=== PATIENT | female | born 1985 | race Caucasian/White ===

== ENCOUNTER 2019-11-03 06:33 | Emergency (ER) | payer MEDICAID, OTHER ==
[2019-11-03 06:56] VITALS: BP 130/70; PULSE 68
[2019-11-03] MEDS ORDERED: HYDROmorphone 1 MG/ML Syringe IM ONE (07:14)
--- NOTE | 2019-11-03 07:19 | EDM.PDOC ---
ED HPI GENERAL MEDICAL PROBLEM - General Chief Complaint: Flank Pain Stated Complaint: right side pain nausa Time Seen by Provider: 11/03/19 07:15 Source of Information: Reports: Patient History Limitations: Reports: No Limitations - History of Present Illness INITIAL COMMENTS - FREE TEXT/NARRATIVE: 34-year-old female woke up with right flank pain at 3:30 AM. Had several hot and cold flashes and nausea with a few vomiting episodes, then realized she needed to come to the emergency room because the pain was so intense. Some waxing and waning quality but does not go away. Very localized to the right flank area, some radiation around into the right lower quadrant. No fevers or chills. At the end of urination, she has dysuria, it is impossible that she is according to the patient. Onset: Unknown/Unsure (Woke with pain at 3:30 AM) Location: Reports: Back (Right flank) Improves with: Reports: None Worsens with: Reports: None Associated Symptoms: Reports: Nausea/Vomiting. 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 (See Below) Other HEALTHCARE MARKETER History: hystectomy in nov Neurological History: Reports: Concussion Psychiatric History: Reports: Depression Endocrine/Metabolic History: Reports: Other (See Below) Other Endocrine/Metabolic History: 3 thyroid nodules diagnoised 11/02/2019 Hematologic History: Reports: Blood Transfusion(s), Other (See Below) Other Hematologic History: "bleed out" every time has had surgery and needed transfusions Dermatologic History: Reports: Psoriasis, Scleroderma - Infectious Disease History Infectious Disease History: Reports: Chicken Pox, Influenza - Past Surgical History HEENT Surgical History: Reports: Adenoidectomy, Tonsillectomy Female Surgical History: Reports: Section, D&C, Hysterectomy Social & Family History - Tobacco Use Smoking Status *Q: Never Smoker - Recreational Drug Use Recreational Drug Use: No ED ROS GENERAL - Review of Systems Review Of Systems: See Below Constitutional: Reports: Malaise. Denies: Fever, Chills HEENT: Reports: No Symptoms Respiratory: Denies: Shortness of Breath Cardiovascular: Denies: Chest Pain GI/Abdominal: Reports: Abdominal Pain (Right lower quadrant has some radiated pain from the right flank) : Reports: Flank Pain Skin: Reports: No Symptoms Neurological: Denies: Dizziness, Headache Psychiatric: Reports: No Symptoms ED EXAM, GENERAL - Physical Exam Exam: See Below Exam Limited By: No Limitations General Appearance: Alert, Anxious, Mild Distress (Looks fairly uncomfortable) Head: Atraumatic Respiratory/Chest: No Respiratory Distress Cardiovascular: Regular Rate, Rhythm GI/Abdominal: Soft, Non-Tender Back Exam: CVA Tenderness (R). No: CVA Tenderness (L) Neurological: Alert, Oriented Psychiatric: Anxious Skin Exam: Warm, Dry Course - Vital Signs Last Recorded V/S: Last Vital Signs Temp 96.4 F L 11/03/19 06:56 Pulse 68 11/03/19 06:56 Resp 20 11/03/19 06:56 BP 130/70 11/03/19 06:56 Pulse Ox 99 11/03/19 06:56 - Orders/Labs/Meds Orders: Active Orders 24 hr Category Date Time Status CULTURE URINE [RM] Stat Lab 11/03/19 08:23 Received Labs: Laboratory Tests 11/03/19 Range/Units 07:01 Urine Color Yellow (YELLOW) Urine Appearance Turbid A (CLEAR) Urine pH 6.5 (5.0-8.0) Ur Specific [place] >= 1.030 (1.008-1.030) Urine Protein >=300 H (NEGATIVE) mg/dL Urine Glucose (UA) Negative (NEGATIVE) mg/dL Urine Ketones Trace H (NEGATIVE) mg/dL Urine Occult Blood Large H (NEGATIVE) Urine Nitrite Positive H (NEGATIVE) Urine Bilirubin Negative (NEGATIVE) Urine Urobilinogen 0.2 (0.2-1.0) EU/dL Ur Leukocyte Esterase Large H (NEGATIVE) Urine RBC Packed H (0-5) Urine WBC Packed H (0-5) Ur Epithelial Cells Few Amorphous Sediment Not seen Urine Bacteria Many Urine Mucus Not seen Meds: Medications Discontinued Medications Generic Name Dose Route Start Last Admin Trade Name Holley PRN Reason Stop Dose Admin Hydromorphone HCl 1 mg 11/03/19 07:14 11/03/19 07:20 Dilaudid IM 11/03/19 07:15 1 mg ONETIME ONE Administration Ceftriaxone Sodium 1 gm/ 50 mls @ 100 mls/hr 11/03/19 08:05 11/03/19 08:30 Sodium Chloride IV 11/03/19 08:34 100 mls/hr ONETIME ONE Administration - Re-Assessments/Exams Free Text/Narrative Re-Assessment/Exam: 11/03/19 07:19 A UA was obtained that looks cloudy. Patient is fairly uncomfortable so was given 1 mg of IM Dilaudid, and a CT abdomen and pelvis without contrast will be ordered. 11/03/19 08:12 IMPRESSION: Inflammatory stranding surrounding the right ureter. However, there is no visible calculus within either kidney, the course of the ureter or within the bladder. Differential considerations are obstructive uropathy due to a noncalcified calculus, recent passage of a stone, ureteral/bladder stricture or mass. An inflammatory process/UTI or neoplastic process unrelated to obstructive uropathy is also possible. Further clinical correlation advised. UA is markedly positive, nitrite positive packed with bacteria WBCs and RBCs. An IV was started and she will be given 1 g of Rocephin IV and then started on oral antibiotics. A culture of the urine was started. 11/03/19 09:36 Patient tolerated the Rocephin well, cefuroxime 250 mg twice daily was called in for 10 days. Departure - Departure Time of Disposition: 09:04 Disposition: Home, Self-Care 01 Clinical Impression: UTI, Urinary tract infectious disease - Discharge Information Prescriptions: Cefuroxime [Ceftin] 250 mg PO BID 10 Days #20 tab Instructions: Urinary Tract Infection, Adult Referrals: PCP,None [Primary Care Provider] - Forms: ED Department Discharge Care Plan Goals: Take antibiotic twice daily until gone, rest and fluids are important the first 24 to 48 hours. Return anytime if worsening such as vomiting the medication, increased pain or fever. Ibuprofen or naproxen will be helpful for pain. Consider rechecking in 2 to 3 days if not improving satisfactorily. We will be in touch with you with culture result if changes are needed. In 2 to 3 weeks you should recheck your urine when asymptomatic to make sure everything has cleared. Sepsis Event Note - Evaluation Sepsis Screening Result: No Definite Risk - Focused Exam Vital Signs: Vital Signs Temp Pulse Resp BP Pulse Ox 11/03/19 06:56 96.4 F L 68 20 130/70 99 11/03/19 06:53 96.4 F L 68 20 130/70 99 Date Exam was Performed: 11/03/19 Time Exam was Performed: 09:36 - My Orders Last 24 Hours: My Active Orders 11/03/19 08:23 CULTURE URINE [RM] Stat - Assessment/Plan Last 24 Hours: My Active Orders 11/03/19 08:23 CULTURE URINE [RM] Stat
--- NOTE | 2019-11-03 08:00 | CRLCT ---
INDICATION: Right flank pain COMPARISON: None TECHNIQUE: CT examination of the abdomen and pelvis was performed without intravenous contrast. Thin section axial images were obtained from the lung bases through the pubic symphysis. Oral contrast was not administered. Please note that all CT scans at this facility use dose modulation, iterative reconstruction, and/or weight-based dosing when appropriate to reduce radiation dose to as low as reasonably achievable. FINDINGS: LUNG BASES: The lung bases as visualized appear normal.The heart size is normal at the lung bases. LIVER/BILIARY SYSTEM:The liver is normal in size and configuration given the lack of intravenous contrast. There is no visible focal mass and there is no intra- or extra hepatic biliary ductal dilatation.The gall bladder appears normal. ADRENALS: Normal non-contrast appearance KIDNEYS, URETERS and BLADDER:There is no intrarenal calculus on either side. There is stranding surrounding the right ureter with periureteric inflammatory change. However, there is no visible calculus within the course of the ureter or within the bladder. Differential considerations are obstructive uropathy due to a noncalcified calculus, recent passage of a stone or ureteral/bladder stricture or mass. An inflammatory or neoplastic process unrelated to obstructive uropathy is also possible further evaluation is advised SPLEEN:Normal non-contrast appearance. PANCREAS: Normal non-contrast appearance. RETROPERITONEUM and MESENTERY: There is no mass, adenopathy or aortic aneurysm. GASTROINTESTINAL SYSTEM: There is no evidence of diverticulitis, colitis, mechanical obstruction, or appendicitis. The small bowel as visualized appears normal. PELVIS: No mass, adenopathy or free fluid. OSSEOUS STRUCTURES and ABDOMINAL WALL: There is an age-appropriate appearance of the osseous structures.No significant abdominal wall defect. OTHER: No free fluid or free air. IMPRESSION: Inflammatory stranding surrounding the right ureter. However, there is no visible calculus within either kidney, the course of the ureter or within the bladder. Differential considerations are obstructive uropathy due to a noncalcified calculus, recent passage of a stone, ureteral/bladder stricture or mass. An inflammatory process/UTI or neoplastic process unrelated to obstructive uropathy is also possible. Further clinical correlation advised. Please note that all CT scans at this facility use dose modulation, iterative reconstruction, and/or weight-based dosing when appropriate to reduce radiation dose to as low as reasonably achievable. Dictated by Reji Nicole MD @ Nov 03 2019 7:51AM Signed by Dr. Reji Nicole @ Nov 03 2019 7:59AM
[2019-11-03] MEDS ORDERED: cefTRIAXone 1 GM in Sodium Chloride 0.9% 50 ML IV ONE (08:05)
== END 2019-11-03 09:05 | disposition home or self-care (01) ==
LOC: JP.ED 06:33
DX: N39.0 Urinary tract infection, site not specified (principal)
CPT/HCPCS: 74176; 81001; 87086; 87088; 87186; 96365; 96372; 99284; J0696; J1170; J7050

== ENCOUNTER 2020-02-12 17:04 | Emergency (ER) | payer MEDICAID, OTHER ==
[2020-02-12 17:18] VITALS: BP 144/91; PULSE 68
[2020-02-12] MEDS ORDERED: Tetracaine HCl/PF 0.5% 4 ML Bottle EYERT ONE (17:39)
--- NOTE | 2020-02-12 17:46 | EDM.PDOC ---
ED HPI GENERAL MEDICAL PROBLEM - General Chief Complaint: ENT Problem Stated Complaint: RT EYE INJURY Time Seen by Provider: 02/12/20 17:30 Source of Information: Reports: Patient, RN, RN Notes Reviewed History Limitations: Reports: No Limitations - History of Present Illness INITIAL COMMENTS - FREE TEXT/NARRATIVE: Patient was working outside today. She was struck in the right eye by a stick. She does not feel anything in the eye however she has a blurry spot in her vision and significant pain. Patient came straight to the ER. She tried nothing prior to coming here. Onset: Today, Sudden Onset Date: 02/12/20 Onset Time: 16:00 Duration: Minutes: Location: Reports: Face (Right eye) Quality: Reports: Burning Improves with: Reports: None Worsens with: Reports: None Context: Reports: Trauma Associated Symptoms: Reports: No Other Symptoms Right Eye Pain Score (Numeric/FACES): 5 - Related Data Allergies Allergy/AdvReac Type Severity Reaction Status Date / Time No Known Allergies Allergy Verified 02/12/20 17:21 Home Meds: Home Meds Cholecalciferol (Vitamin D3) [Vitamin D] 5,000 unit PO DAILY 02/12/20 [History] Escitalopram Oxalate 10 mg PO DAILY 02/12/20 [History] [place]-3/DHA/Epa/Fish Oil [Fish Oil 1,000 mg Softgel] 1 tab PO DAILY 02/12/20 [History] Vitamin B Complex 2 tab PO DAILY 02/12/20 [History] buPROPion HCL [Bupropion Xl] 150 mg PO DAILY 02/12/20 [History] Past Medical History HEENT History: Reports: None Respiratory History: Reports: Asthma Other Respiratory History: pain under R ribs hurt more with inspiration Genitourinary History: Reports: UTI, Recurrent GUIDE CRUISE History: Reports: Other (See Below) Other GUIDE CRUISE History: hystectomy in nov Musculoskeletal History: Reports: Back Pain, Chronic, Osteoarthritis Neurological History: Reports: Concussion Psychiatric History: Reports: Depression Endocrine/Metabolic History: Reports: Other (See Below) Other Endocrine/Metabolic History: 3 thyroid nodules diagnoised 11/02/2019. hashimatos Hematologic History: Reports: Blood Transfusion(s), Other (See Below) Other Hematologic History: "bleed out" every time has had surgery and needed transfusions Dermatologic History: Reports: Psoriasis, Scleroderma - Infectious Disease History Infectious Disease History: Reports: Chicken Pox, Influenza - Past Surgical History HEENT Surgical History: Reports: Adenoidectomy, Tonsillectomy Respiratory Surgical History: Reports: None Female Surgical History: Reports: Section, D&C, Hysterectomy Endocrine Surgical History: Reports: None Neurological Surgical History: Reports: None Musculoskeletal Surgical History: Reports: None Dermatological Surgical History: Reports: None Social & Family History - Tobacco Use Smoking Status *Q: Never Smoker - Caffeine Use Caffeine Use: Reports: Coffee - Recreational Drug Use Recreational Drug Use: No ED ROS ENT - Review of Systems Review Of Systems: See Below Constitutional: Reports: No Symptoms HEENT: Reports: Eye Pain (Right eye trouble) Respiratory: Reports: No Symptoms Cardiovascular: Reports: No Symptoms ED EXAM, ENT - Physical Exam Exam: See Below Exam Limited By: No Limitations General Appearance: Alert, WD/WN, Mild Distress Eye Exam: Right Eye: Corneal Abrasion (@ 1-2oclock across iris and sclera ), Vision Changes (blurry in area of abrasion - vision check complete), Bilateral Eye: EOMI, PERRL Neurological: Alert, Oriented, CN II-XII Intact, Normal Cognition, Normal Gait Psychiatric: Normal Affect, Normal Mood Course - Vital Signs Last Recorded V/S: Last Vital Signs Temp 36.0 C L 02/12/20 17:21 Pulse 68 02/12/20 17:21 Resp 16 02/12/20 17:21 BP 144/91 H 02/12/20 17:21 Pulse Ox 96 02/12/20 17:21 - Orders/Labs/Meds Meds: Medications Discontinued Medications Generic Name Dose Route Start Last Admin Trade Name Holley PRN Reason Stop Dose Admin Tetracaine HCl 2 ml 02/12/20 17:39 02/12/20 17:44 Tetracaine 0.5% Steri-Unit Altagracia EYERT 02/12/20 17:40 2 drop ASDIRECTED ONE Administration - Re-Assessments/Exams Free Text/Narrative Re-Assessment/Exam: 02/12/20 18:00 Tetracaine drops applied to eye. Flouracine staining with blue light illumination shows corneal abrasion @1-2 oclock across iris and sclera of the eye without foreign body identified. Pt tolerated the procedure well. 02/12/20 18:11 Tobradex eye drop RX via [facility] to prevent infection Utilize Ibuprofen, sunglasses and red eye drops to sooth eye and decrease pain Pt in agreement with this plan. If vision continues blurry followup with Eye provider. 02/12/20 18:13 Departure - Departure Time of Disposition: 18:23 Disposition: Home, Self-Care 01 Condition: Fair Clinical Impression: Corneal abrasion - Discharge Information *PRESCRIPTION DRUG MONITORING PROGRAM REVIEWED*: Not Applicable *COPY OF PRESCRIPTION DRUG MONITORING REPORT IN PATIENT LONI: Not Applicable Instructions: Corneal Abrasion, [id number] Referrals: PCP,None [Primary Care Provider] - Forms: ED Department Discharge Additional Instructions: Tobradex eye drop RX via [facility] to prevent infection Utilize Ibuprofen, sunglasses and red eye drops to sooth eye and decrease pain Pt in agreement with this plan. If vision continues blurry followup with Eye provider. Sepsis Event Note (ED) - Evaluation Sepsis Screening Result: No Definite Risk - Focused Exam Vital Signs: Vital Signs Temp Pulse Resp BP Pulse Ox 02/12/20 17:21 36.0 C L 68 16 144/91 H 96 02/12/20 17:16 36.0 C L 68 16 144/91 H 96
== END 2020-02-12 18:22 | disposition home or self-care (01) ==
LOC: JP.ED 17:04
DX: S05.01XA Injury of conjunctiva and corneal abrasion without foreign body, right eye, initial encounter (principal); J45.909 Unspecified asthma, uncomplicated; F32.9 Major depressive disorder, single episode, unspecified; Z90.710 Acquired absence of both cervix and uterus; Z90.49 Acquired absence of other specified parts of digestive tract; Z79.899 Other long term (current) drug therapy; W22.8XXA Striking against or struck by other objects, initial encounter
CPT/HCPCS: 99283

== ENCOUNTER 2020-07-11 20:14 | Emergency (ER) | payer MEDICAID ==
[2020-07-11 20:35] VITALS: BP 136/87; PULSE 66
--- NOTE | 2020-07-11 21:55 | EDM.PDOC ---
ED HPI GENERAL MEDICAL PROBLEM - General Chief Complaint: General Stated Complaint: FELL Time Seen by Provider: 07/11/20 20:56 Source of Information: Reports: Patient History Limitations: Reports: No Limitations - History of Present Illness INITIAL COMMENTS - FREE TEXT/NARRATIVE: The patient reports that several days ago she went ice fishing and she was carrying a bunch of equipment back into the house when she inadvertently tripped over her daughter's bike causing her to fall on her left knee and right elbow. She had acute onset of pain and bruising of the knee just below the patella. She has been icing and elevating it and taking ibuprofen for pain. This happened 3 days ago and it has not improved much prompting her to come in for evaluation. She has no problems walking on it, however, she reports significant tenderness over the tibial plateau and medial joint line. She is also complaining of right elbow pain and the inability to fully extend her right elbow since the fall. She has also been icing and resting this over the last 3 days. She denies any distal numbness or tingling, weakness, or other neurologic deficits. She did not sustain any other injuries. Left Knee Pain Score (Numeric/FACES): 5 Right Elbow Pain Score (Numeric/FACES): 6 - Related Data Allergies Allergy/AdvReac Type Severity Reaction Status Date / Time No Known Allergies Allergy Verified 07/11/20 20:47 Home Meds: Home Meds Cholecalciferol (Vitamin D3) [Vitamin D] 5,000 unit PO DAILY 02/12/20 [History] Escitalopram Oxalate 20 mg PO DAILY 02/12/20 [History] [place]-3/DHA/Epa/Fish Oil [Fish Oil 1,000 mg Softgel] 2 tab PO DAILY 02/12/20 [History] Vit D3 & K/[place] HCl/Hops [Ostera] 3 tab PO DAILY 07/11/20 [History] amLODIPine [Norvasc] 1 tab PO DAILY 07/11/20 [History] Past Medical History HEENT History: Reports: None Cardiovascular History: Reports: Hypertension Respiratory History: Reports: Asthma Other Respiratory History: pain under R ribs hurt more with inspiration Genitourinary History: Reports: UTI, Recurrent 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 hashimatos Hematologic History: Reports: Blood Transfusion(s), Other (See Below) Other Hematologic History: "bleed out" every time has had surgery and needed transfusions Dermatologic History: Reports: Psoriasis, Scleroderma - Infectious Disease History Infectious Disease History: Reports: Chicken Pox, Influenza - Past Surgical History HEENT Surgical History: Reports: Adenoidectomy, Tonsillectomy Respiratory Surgical History: Reports: None Female Surgical History: Reports: Section, D&C, Hysterectomy Endocrine Surgical History: Reports: None Neurological Surgical History: Reports: None Musculoskeletal Surgical History: Reports: None Dermatological Surgical History: Reports: None Social & Family History - Family History Family Medical History: No Pertinent Family History - Tobacco Use Tobacco Use Status *Q: Never Tobacco User - Caffeine Use Caffeine Use: Reports: Coffee - Recreational Drug Use Recreational Drug Use: No ED ROS GENERAL - Review of Systems Review Of Systems: See Below Constitutional: Reports: No Symptoms HEENT: Reports: No Symptoms Respiratory: Reports: No Symptoms Cardiovascular: Reports: No Symptoms Endocrine: Reports: No Symptoms GI/Abdominal: Reports: No Symptoms : Reports: No Symptoms Musculoskeletal: Reports: Joint Pain (Right elbow and left knee pain), Joint Swelling (Left knee swelling and ecchymosis) Skin: Reports: No Symptoms Neurological: Reports: No Symptoms Psychiatric: Reports: No Symptoms Hematologic/Lymphatic: Reports: No Symptoms Immunologic: Reports: No Symptoms ED EXAM, GENERAL - Physical Exam Exam: See Below Exam Limited By: No Limitations General Appearance: Alert, No Apparent Distress Head: Atraumatic, Normocephalic Neck: Normal Inspection, Supple Peripheral Pulses: 2+: Radial (L), Radial (R) Extremities: Joint Swelling (Swelling with ecchymosis over the proximal tibia. Tenderness to palpation over the medial joint line. No ligamentous laxity. No tenderness with palpation of the patella. Examination of the right elbow reveals mildly reduced range of motion from 170 - 90 degrees. There is good pronation supination. No significant swelling or ecchymosis. Tenderness with palpation over the lateral epicondyle.) Neurological: Alert, Oriented, Normal Cognition, No Motor/Sensory Deficits Psychiatric: Normal Affect, Normal Mood Skin Exam: Warm, Dry, Intact, Ecchymosis (Over the proximal anterior left tibia with significant swelling around the insertion of the patellar tendon.) Course - Vital Signs Last Recorded V/S: Last Vital Signs Temp 36.6 C 07/11/20 20:51 Pulse 66 07/11/20 20:51 Resp 16 07/11/20 20:51 BP 136/87 07/11/20 20:51 Pulse Ox 97 07/11/20 20:51 - Orders/Labs/Meds Orders: Active Orders 24 hr Category Date Time Status Elbow Min 3V Rt [CR] Stat Exams 07/11/20 21:01 Taken Knee 3V Lt [CR] Stat Exams 07/11/20 21:01 Taken - Radiology Interpretation Free Text/Narrative:: I reviewed x-rays of the left knee showing no acute osseous abnormalities. There is no evidence for tibial plateau fracture. There is a mild infrapatellar effusion. I reviewed the x-rays of the right elbow showing no acute osseous abnormalities. There is no evidence for a sail sign to suggest an occult supracondylar fracture. The radial head appears to be intact. There is no significant soft tissue swelling. It appears that the injuries have resulted in contusions of the elbow and knee. We discussed management of this including continuing with the ice and elevation as well as the ibuprofen or Tylenol. We will simply take time for this to fully resolve. Activity as tolerated. At this time patient suitable for discharge in satisfactory condition. All questions were answered prior to discharge. Departure - Departure Time of Disposition: 21:55 Disposition: Home, Self-Care 01 Condition: Good Clinical Impression: Contusion of right elbow, initial encounter, Contusion of left knee, initial encounter - Discharge Information *PRESCRIPTION DRUG MONITORING PROGRAM REVIEWED*: Not Applicable *COPY OF PRESCRIPTION DRUG MONITORING REPORT IN PATIENT LONI: Not Applicable Instructions: Elbow Contusion, [id number], Contusion, [id number] Referrals: Kwame Fernandez MD [Primary Care Provider] - Care Plan Goals: I would recommend continuing with ice, elevation of the knee, and activity as tolerated with both the knee and the elbow. Continue to take Tylenol or ibuprofen for pain control. It may take up to a week for this to show significant improvement. Sepsis Event Note (ED) - Evaluation Sepsis Screening Result: No Definite Risk - Focused Exam Vital Signs: Vital Signs Temp Pulse Resp BP Pulse Ox 02/03/21 20:51 36.6 C 66 16 136/87 97 07/11/20 20:33 36.6 C 66 16 136/87 97 - Problem List & Annotations (1) Contusion of left knee, initial encounter SNOMED Code(s): 55350866 Code(s): S80.02XA - CONTUSION OF LEFT KNEE, INITIAL ENCOUNTER Status: Acute Priority: Medium Current Visit: Yes (2) Contusion of right elbow, initial encounter SNOMED Code(s): 30484576 Code(s): S50.01XA - CONTUSION OF RIGHT ELBOW, INITIAL ENCOUNTER Status: Acute Priority: Medium Current Visit: Yes - Problem List Review Problem List Initiated/Reviewed/Updated: Yes - My Orders Last 24 Hours: My Active Orders 07/11/20 21:01 Elbow Min 3V Rt [CR] Stat Knee 3V Lt [CR] Stat - Assessment/Plan Last 24 Hours: My Active Orders 07/11/20 21:01 Elbow Min 3V Rt [CR] Stat Knee 3V Lt [CR] Stat
--- NOTE | 2020-07-12 09:09 | CR ---
Elbow Min 3V Rt, CLINICAL HISTORY: Fall FINDINGS: No acute fracture or dislocation is noted. The fat pads are in normal position. Articular surfaces are smooth Impression: Negative Knee 3V Lt CLINICAL HISTORY: Fall FINDINGS: No acute fracture or dislocation is noted. There are no osseous lesions. Articular surfaces are smooth Impression: Negative.
== END 2020-07-11 22:06 | disposition home or self-care (01) ==
LOC: JP.ED 20:14
DX: S80.02XA Contusion of left knee, initial encounter (principal); S50.01XA Contusion of right elbow, initial encounter; I10 Essential (primary) hypertension; J45.909 Unspecified asthma, uncomplicated; Z79.899 Other long term (current) drug therapy; W01.0XXA Fall on same level from slipping, tripping and stumbling without subsequent striking against object, initial encounter
CPT/HCPCS: 73080-26-RT; 73080-RT; 73562-26-LT; 73562-LT; 99283; 99284

== ENCOUNTER 2021-05-19 12:57 | Emergency (ER) | payer MEDICAID ==
[2021-05-19] MEDS ORDERED: Bacitracin Oint 1 GM U/D Packet TOP ONE (13:02)
[2021-05-19 13:04] VITALS: BP 147/69; PULSE 72
--- NOTE | 2021-05-19 13:35 | EDM.PDOC ---
ED HPI GENERAL MEDICAL PROBLEM - General Chief Complaint: Laceration Stated Complaint: STAB RT LEG Time Seen by Provider: 05/19/21 13:00 Source of Information: Reports: Patient History Limitations: Reports: No Limitations - History of Present Illness INITIAL COMMENTS - FREE TEXT/NARRATIVE: 36-year-old female was butchering a cow and stabbed herself on the inside of the left leg. She has a pressure dressing on it but is able to walk. She has not seen the laceration, she just assumes it is "bad". Her tetanus is current. Onset: Sudden Duration: Hour(s): (1 hour ago) Location: Reports: Lower Extremity, Left Quality: Reports: Stabbing Associated Symptoms: Reports: No Other Symptoms - Related Data Allergies Allergy/AdvReac Type Severity Reaction Status Date / Time No Known Allergies Allergy Verified 07/11/20 20:47 Home Meds: Home Meds Cholecalciferol (Vitamin D3) [Vitamin D] 5,000 unit PO DAILY 02/12/20 [History] Escitalopram Oxalate 20 mg PO DAILY 02/12/20 [History] Taylor-3/DHA/Epa/Fish Oil [Fish Oil 1,000 mg Softgel] 2 tab PO DAILY 02/12/20 [History] Vit D3 & K/Berberine HCl/Hops [Ostera] 3 tab PO DAILY 07/11/20 [History] Past Medical History HEENT History: Reports: None Cardiovascular History: Reports: Hypertension Respiratory History: Reports: Asthma Other Respiratory History: pain under R ribs hurt more with inspiration Genitourinary History: Reports: UTI, Recurrent [employer] History: Reports: Other [employer] History: hystectomy in nov Musculoskeletal History: Reports: Back Pain, Chronic, Osteoarthritis Neurological History: Reports: Concussion Psychiatric History: Reports: Depression Endocrine/Metabolic History: Reports: Other (See Below) Other Endocrine/Metabolic History: 3 thyroid nodules diagnoised 11/02/2019. [email or web address] Hematologic History: Reports: Blood Transfusion(s), Other (See Below) Other Hematologic History: "bleed out" every time has had surgery and needed transfusions Dermatologic History: Reports: Psoriasis, Scleroderma - Infectious Disease History Infectious Disease History: Reports: Chicken Pox, Influenza - Past Surgical History HEENT Surgical History: Reports: Adenoidectomy, Tonsillectomy Respiratory Surgical History: Reports: None Female Surgical History: Reports: Section, D&C, Hysterectomy Endocrine Surgical History: Reports: None Neurological Surgical History: Reports: None Musculoskeletal Surgical History: Reports: None Dermatological Surgical History: Reports: None Social & Family History - Family History Family Medical History: No Pertinent Family History - Tobacco Use Tobacco Use Status *Q: Never Tobacco User Second Hand Smoke Exposure: No - Caffeine Use Caffeine Use: Reports: Coffee - Alcohol Use Days Per Week of Alcohol Use: 4 Number of Drinks Per Day: 1 Total Drinks Per Week: 4 - Recreational Drug Use Recreational Drug Use: Yes Recreational Drug Type: Reports: Marijuana/Hashish ED ROS GENERAL - Review of Systems Review Of Systems: See Below Constitutional: Denies: Fever, Chills Respiratory: Reports: Shortness of Breath Cardiovascular: Reports: Chest Pain GI/Abdominal: Denies: Nausea, Vomiting Skin: Reports: Other (Laceration left leg) Neurological: Denies: Paresthesia (No distal paresthesias) ED EXAM, SKIN/RASH Exam: See Below Exam Limited By: No Limitations General Appearance: Alert, No Apparent Distress, Anxious Head: Atraumatic Respiratory/Chest: No Respiratory Distress, Lungs Clear Cardiovascular: Regular Rate, Rhythm Extremities: Other (Exam is otherwise limited to the left leg. After the pressure dressing was removed, a 2.5 cm laceration to the inner aspect of the left thigh was seen. Bleeding was controlled. No significant underlying structures were injured) Neurological: Alert, Oriented Skin: Other (3 cm laceration through the skin into the subcutaneous tissue on the left thigh) Course - Vital Signs Last Recorded V/S: Last Vital Signs Temp 98.6 F 05/19/21 13:02 Pulse 72 05/19/21 13:02 Resp 16 05/19/21 13:02 BP 147/69 H 05/19/21 13:02 Pulse Ox 95 05/19/21 13:02 - Orders/Labs/Meds Meds: Medications Discontinued Medications Generic Name Dose Route Start Last Admin Trade Name Karthikq PRN Reason Stop Dose Admin Bacitracin 1 dose 05/19/21 13:02 05/19/21 13:41 Bacitracin Oint 1 Gm U/D Packet TOP 05/19/21 13:03 1 dose ONETIME ONE Administration Lidocaine HCl 5 ml 05/19/21 13:02 05/19/21 13:41 Lidocaine 1% 5 Ml Sdv INJECT 05/19/21 13:03 5 ml ONETIME ONE Administration - Re-Assessments/Exams Free Text/Narrative Re-Assessment/Exam: 05/19/21 13:34 The area was anesthetized with 1% lidocaine and cleansed thoroughly with saline. Four 4-0 Ethilon sutures were used to close the wound. Topical bacitracin and a pressure dressing was applied, she can increase activity as tolerated and recheck in 10 days for suture removal. Recheck sooner if concerns for infection or not healing satisfactorily. Departure - Departure Time of Disposition: 13:42 Disposition: Home, Self-Care 01 Clinical Impression: Laceration of left leg Qualifiers: Encounter type: initial encounter Qualified Code(s): S81.812A - Laceration without foreign body, left lower leg, initial encounter - Discharge Information Instructions: Laceration Care, Adult Referrals: PCP,None [Primary Care Provider] - Forms: ED Department Discharge Care Plan Goals: Keep wound covered and clean while healing, sutures can be removed next Thursday the . Recheck sooner if concerns of infection or not healing satisfactorily. Continue activity as tolerated, and ibuprofen or naproxen may be helpful with discomfort. Sepsis Event Note (ED) - Evaluation Sepsis Screening Result: No Definite Risk - Focused Exam Vital Signs: Vital Signs Temp Pulse Resp BP Pulse Ox 05/19/21 13:02 98.6 F 72 16 147/69 H 95
== END 2021-05-19 13:42 | disposition home or self-care (01) ==
LOC: JP.ED 12:57
DX: S81.812A Laceration without foreign body, left lower leg, initial encounter (principal); I10 Essential (primary) hypertension; W55.22XA Struck by cow, initial encounter
CPT/HCPCS: 12001; 99282-25

== ENCOUNTER 2023-02-11 07:28 | Emergency (ER) | payer MEDICAID ==
[2023-02-11] MEDS ORDERED: Ondansetron 4 MG/2 ML SDV IVPUSH ONE ×2 (07:37→11:38)
[2023-02-11] MEDS ORDERED: HYDROmorphone 1 MG/ML Syringe IVPUSH ONE ×2 (07:37→08:17)
[2023-02-11 07:45] LABS: BASOPHILS ABSOLUTE AUTO 0.06 K/uL (0.00-0.10); BASOPHILS PERCENT AUTO 0.9 % (0.1-1.3); EOSINOPHILS PERCENT AUTO 1.5 % (0.0-5.4); HEMATOCRIT 38.6 % (34.3-46.0); HEMOGLOBIN 13.1 g/dL (11.2-15.5); IMMATURE GRAN PERCENT AUTO 0.1 % (0.0-0.7); LYMPHOCYTES ABSOLUTE AUTO 2.14 K/uL (0.8-3.3); LYMPHOCYTES PERCENT AUTO 32.1 % (11.4-47.7); MEAN CORPUSCULAR HGB CONC 33.9 g/dL (31.6-35.5); MEAN CORPUSCULAR VOLUME 91.5 fL (81.4-99.0); MONOCYTES ABSOLUTE AUTO 0.32 K/uL (0.20-0.90); MONOCYTES PERCENT AUTO 4.8 % (3.3-12.6); NEUTROPHILS ABSOLUTE AUTO 4.04 K/uL (1.0-7.6); NEUTROPHILS PERCENT AUTO 60.6 % (40.0-78.1); PLATELET COUNT,PLT 235 K/uL (130-375); RED BLOOD CELL COUNT 4.22 M/uL (3.77-5.24); WHITE BLOOD CELL COUNT,WBC 6.7 K/uL (3.2-11.0)
[2023-02-11] MEDS ORDERED: Sodium Chloride 0.9% 1,000 ML IV SCH (07:45)
[2023-02-11 07:46] LABS: IMMATURE GRAN ABSOLUTE AUTO 0.01 K/uL (0.00-0.23)
[2023-02-11 07:58] LABS: A/G RATIO 1.5 (1.2-2.2); ALANINE AMINOTRANSFERASE,ALT 24 U/L (12-78); ALBUMIN 4.2 g/dL (3.4-5.0); ALKALINE PHOSPHATASE 35 U/L (46-116); ASPARTATE AMNIOTRANSFERASE,AST 14 U/L (15-37); BILIRUBIN TOTAL 0.6 mg/dL (0.2-1.0); BLOOD UREA NITROGEN,BUN 16 mg/dL (7-18); C-REACTIVE PROTEIN <0.05 mg/dL (0.0-0.3); CALCIUM 8.8 mg/dL (8.5-10.1); CARBON DIOXIDE,CO2 25 mmol/L (21-32); CHLORIDE,CL 102 mmol/L (100-108); CREATININE 0.9 mg/dL (0.6-1.0); EST CRCL DRUG DOSING (CG) 75.52 mL/min; ESTIMATED GFR 83 mL/min (>60); GLUCOSE RANDOM 115 mg/dL (74-106); POTASSIUM,K 3.6 mmol/L (3.6-5.2); SODIUM,NA 139 mmol/L (140-148)
[2023-02-11 08:02] LABS: ANION GAP 15.6 mmol/L (5.0-14.0)
[2023-02-11] MEDS ORDERED: Iopamidol 612 MG/ML 100 ML Bottle IV PRN (08:11)
[2023-02-11] MEDS ORDERED: Sodium Chloride 0.9% 50 ML IV ONE (08:11)
[2023-02-11] MEDS ORDERED: Sodium Chloride 0.9% 10 ML Syringe FLUSH PRN (08:11)
[2023-02-11] MEDS ORDERED: HYDROmorphone 1 MG/ML Syringe IVPUSH PRN (08:18)
[2023-02-11 08:56] LABS: APPEARANCE,URINE SLIGHTLY CLOUDY (CLEAR); BILIRUBIN,URINE NEGATIVE (NEGATIVE); COLOR,URINE YELLOW (YELLOW); GLUCOSE,URINE NEGATIVE (NEGATIVE); KETONES,URINE 15 mg/dL (NEGATIVE); LEUKOCYTE ESTERASE,URINE NEGATIVE (NEGATIVE); NITRITE,URINE NEGATIVE (NEGATIVE); OCCULT BLOOD,URINE TRACE-LYSED (NEGATIVE); PROTEIN,URINE NEGATIVE (NEGATIVE); UROBILINOGEN,URINE 0.2 EU/dL (0.2-1.0)
[2023-02-11 09:01] LABS: AMORPHOUS SEDIMENT,URINE FEW; BACTERIA,URINE MODERATE; EPITHELIAL CELLS,URINE MODERATE; MUCUS,URINE NOT SEEN; RBC,URINE 0-5 (0-5); WBC,URINE 0-5 (0-5)
[2023-02-11 09:21] VITALS: BP 122/76; PULSE 43
[2023-02-11] MEDS ORDERED: Gadoteridol 279.3 MG/ML 15 ML SDV IV SCH (11:00)
== END 2023-02-11 11:53 | disposition home or self-care (01) ==
LOC: JP.ED 07:28
DX: R10.31 Right lower quadrant pain (principal); I10 Essential (primary) hypertension; J45.909 Unspecified asthma, uncomplicated; Z90.710 Acquired absence of both cervix and uterus
CPT/HCPCS: 36415; 74177; 74183; 80053; 81001; 83605; 83690; 84145; 84703; 85025; 86140; 96361; 96374; 96375; 96376; 99284; A9579; J1170; J2405; J3490; J7030; Q9967